=== PATIENT | female | born 1975 | race Two or more races ===

== ENCOUNTER 2019-04-10 10:58 | Emergency (ER) | payer OTHER ==
[~2019-04-10] VITALS: Ht 175.3 cm; Wt 54.4 kg
[~2019-04-10 10:58] MED LIST: DICLOFENAC SODI50 MG PO
== END 2019-04-10 15:14 | disposition home or self-care (01) ==
LOC: ER 10:58
DX: S50.11XA Contusion of right forearm, initial encounter (principal); S30.0XXA Contusion of lower back and pelvis, initial encounter; W18.39XA Other fall on same level, initial encounter; Y93.89 Activity, other specified; Y92.098 Other place in other non-institutional residence as the place of occurrence of the external cause; Y99.8 Other external cause status